=== PATIENT | female | born 1950 | race Hispanic/Latino ===

== ENCOUNTER 2017-08-18 06:45 | Day surgery (SDC) | payer MEDICARE, MEDICAID ==
[2017-08-14 09:23] VITALS: BMI 40.2
[2017-08-18] MEDS ORDERED: Lidocaine 2% Inj (20ml) ONE (07:02)
[2017-08-18] MEDS ORDERED: Iohexol 350mgl/ml 50 ML ONE (07:03)
[2017-08-18] MEDS ORDERED: Iodixanol 320 MG/ML 200 ML BOTTLE IV ONE (07:03)
[2017-08-18] MEDS ORDERED: Iodixanol 320 MG/ML 100 ML BOTTLE IV ONE (07:03)
[2017-08-18] MEDS ORDERED: HEPARIN SODIUM/NS 2,000 ML IV ONE (07:03)
[2017-08-18] MEDS ORDERED: Phenylephrine 10 mg/ml Inj ONE (07:03)
[2017-08-18 08:16] LABS: BASO # 0.01 K/mm3 (0.0-2.0); BASO % 0.1 % (0.0-3.0); EOS # 0.1 (0.0-0.7); EOS % 1.3 % (1.5-5.0); GRAN # 4.56 (1.4-6.5); GRAN % 66.9 % (50.0-68.0); HEMOGLOBIN 13.2 g/dL (12.0-16.0); LYMPH # 1.6 (1.2-3.4); LYMPH % 23.5 % (22.0-35.0); MEAN CELL VOLUME 80.1 fl (80.0-105.0); MEAN CORPUSCULAR HEMOGLOBIN 26.2 pg (25.0-35.0); MEAN CORPUSCULAR HGB CONC 32.8 g/dl (31.0-37.0); MEAN PLATELET VOLUME 12.7 fl (7.0-11.0); MONO # 0.6 (0.1-0.6); MONO % 8.2 % (1.0-6.0); RBC 5.03 10^6/uL (3.5-6.1); RED CELL DISTRIBUTION WIDTH 13.4 % (11.5-14.5); WHITE BLOOD COUNT 6.8 10^3/ul (4.5-11.0)
[2017-08-18 08:28] LABS: INR 1.04 (0.93-1.08)
[2017-08-18 08:29] LABS: PARTIAL THROMBOPLASTIN TIME 30.3 Seconds (25.1-36.5)
[2017-08-18 08:36] LABS: LDL CHOLESTEROL 99 mg/dL (0-129)
[2017-08-18 08:39] LABS: BLOOD UREA NITROGEN 25 mg/dL (7-21); CALCIUM 10.8 mg/dL (8.4-10.5); GFR AFRICAN-AMERICAN > 60; GFR NON-AFRICAN AMERICAN > 60; HDL CHOLESTEROL 43 mg/dL (29-60)
[2017-08-18] MEDS ORDERED: Midazolam 2 MG/2 ML VIAL ONE ×2 (08:43→09:03)
[2017-08-18] MEDS ORDERED: Nitroglycerin 50mg in D5W 0 MG/0 ML BOTTLE IV ONE (08:44)
[2017-08-18] MEDS ORDERED: Sodium Chloride 0.9% 1,000 ML IV SCH (09:30)
[2017-08-18 09:50] VITALS: TEMP 97.3
[2017-08-18 12:15] VITALS: RESP 20
[2017-08-18 13:57] VITALS: BP 124/69; PULSE 65; O2SAT 94
--- NOTE | 2017-08-18 18:06 | CARD ---
APPROVED REPORT EKG Measurement Heart [id number] <Conclusion> Normal sinus rhythm Minimal voltage criteria for LVH, may be normal variant Borderline ECG
--- NOTE | 2017-08-18 21:16 | CARDCATH ---
PROCEDURE DATE: 08/18/2017 HISTORY: The patient is a 67-year-old woman with a history of diabetes mellitus, hypertension and hypercholesterolemia, and sedentary lifestyle who presents with chest pain, shortness of breath and an abnormal stress test. Because of this, a cardiac catheterization was recommended. PROCEDURES: Left heart catheterization with coronary arteriography, left ventriculogram were performed. The right femoral artery was cannulated with a 6-Bahraini sheath. There were no complications. Performed moderate sedation which included the presence of an independent trained observer that assisted in monitoring the patient's level of consciousness and physiologic status. After administration of Versed and fentanyl, my intra-service time was 15 minutes. Findings on catheterization revealed a left ventricle that contracted normally. Estimated ejection fraction is 60% to 65%. Her coronary anatomy revealed a right dominant circulation. The RCA revealed diffuse atherosclerosis without critical lesions. The left main artery was unremarkable. The LAD and diagonal vessels revealed intimal irregularities throughout its course without critical lesions. The circumflex artery and obtuse marginal branches were free of significant disease. Angio-Seal was used to close the femoral artery site. The patient tolerated the procedure well. In summary, the procedure revealed diffuse atherosclerosis throughout the coronary tree, but no critical lesions. LV function is normal. Given these findings, the patient should be on aspirin daily. She needs to undergo a strict cardiac risk reduction program. Mc Mukherjee MD
== END 2017-08-18 16:00 | disposition home or self-care (01) ==
LOC: CATH 06:45
PROVIDERS: ATTEND Internal Medicine Cardiovascular Disease
DX: I25.10 Atherosclerotic heart disease of native coronary artery without angina pectoris (principal); I10 Essential (primary) hypertension; E78.00 Pure hypercholesterolemia, unspecified; E11.9 Type 2 diabetes mellitus without complications; R06.02 Shortness of breath; Z79.4 Long term (current) use of insulin
CPT/HCPCS: 36415; 80048; 80061; 85025; 85610; 85730; 86850; 86900; 93005; 93458; 99152; C1760; C1769; C1887; C2629; J1644; J2250; J3010; J7030; J7040

== ENCOUNTER 2017-09-08 15:19 | Emergency (ER) | payer MEDICARE, MEDICAID ==
[2017-09-08 15:19] VITALS: BMI 40.2
[2017-09-08 15:34] VITALS: RESP 18; TEMP 98.4; O2SAT 99
--- NOTE | 2017-09-08 16:46 | ED PDOC ---
Arrival/HPI - General Chief Complaint: Back Pain Time Seen by Provider: 09/08/17 15:26 Historian: Patient - History of Present Illness Narrative History of Present Illness (Text): you were treated in the ED today for hx of sciatica and now having left lower back/hip pain going to the left lower leg but otherwise without any nausea/ vomiting/headache/dizziness/difficulty breathing/chest pain/abdomen pain/ numbness/tingling/loss of limb or bowel or bladder function/pain with urination. 09/08/17 16:43 Time/Duration: 24 hours Past Medical History - Provider Review Nursing Documentation Reviewed: Yes - Travel History Have you recently traveled outside [place] w/in the past 3 mons?: No - Cardiac Hx Pacemaker: No - Pulmonary Hx Respiratory Disorders: No - Neurological Hx Paralysis: No - Hematological/Oncological Hx Blood Transfusions: No Hx Blood Transfusion Reaction: No - Musculoskeletal/Rheumatological Hx Musculoskeletal Disorders: Yes - Psychiatric Hx Emotional Abuse: No Hx Physical Abuse: No Hx Substance Use: No - Anesthesia Hx Anesthesia Reactions: No Hx Malignant Hyperthermia: No - Suicidal Assessment Feels Threatened In Home Enviroment: No Family/Social History - Physician Review Nursing Documentation Reviewed: Yes Family/Social History: No Known Family HX Smoking Status: Never Smoked Hx Alcohol Use: Yes (SOCIAL) Frequency of alcohol use: Socially Hx Substance Use: No Allergies/Home Meds Allergies/Adverse Reactions: Allergies celecoxib [From Celebrex] Allergy (Severe, Verified 09/08/17 15:29) SWELLING ONE SIDE OF FACE Home Medications: Home Meds Medication Instructions Recorded Confirmed Ranitidine HCl [Sunmark Acid 150 mg PO BID 08/14/17 08/18/17 Risk Assessment Consultant] Simvastatin 10 mg PO QPM 08/14/17 08/18/17 Tramadol HCl [Ultram] 50 mg PO Q6 PRN 08/14/17 08/18/17 Insulin Aspart, Recombinant 20 unit SC ACB 08/15/17 08/18/17 [Novolog] Insulin Aspart, Recombinant 22 unit SC ACL 08/15/17 08/18/17 [Novolog] Insulin Aspart, Recombinant 24 unit SC ACD 08/15/17 08/18/17 [Novolog] MetFORMIN [glucOPHAGE] 1,000 mg PO BID 08/15/17 08/18/17 Valsartan 320 mg PO DAILY 08/15/17 08/18/17 Review of Systems - Review of Systems Constitutional: Normal Eyes: Normal ENT: Normal Respiratory: Normal Cardiovascular: Normal Gastrointestinal: Normal Genitourinary Female: Normal Musculoskeletal: Normal, Arthralgias Skin: Normal Neurological: Normal Endocrine: Normal Hemo/Lymphatic: Normal Psychiatric: Normal Physical Exam Vital Signs Reviewed: Yes Vital Signs Temp Pulse Resp BP Pulse Ox 09/08/17 17:00 79 18 158/69 H 99 09/08/17 15:32 98.4 F 83 18 166/70 H 99 Temperature: Afebrile Blood Pressure: Hypertensive Pulse: Regular Respiratory Rate: Normal Appearance: Positive for: Well-Appearing, Non-Toxic, Comfortable Pain Distress: None Mental Status: Positive for: Alert and Oriented X 3 - Systems Exam Head: Present: Atraumatic, Normocephalic Pupils: Present: PERRL Extroacular Muscles: Present: EOMI Conjunctiva: Present: Normal Ears: Present: Normal Mouth: Present: Moist Mucous Membranes Pharnyx: Present: Normal Nose (External): Present: Atraumatic Nose (Internal): Present: Normal Inspection Neck: Present: Normal Range of Motion Respiratory/Chest: Present: Clear to Auscultation, Good Air Exchange Cardiovascular: Present: Regular Rate and Rhythm, Other Abdomen: Present: Other (no pulsatile masses). No: Tenderness, Distention, Normal Bowel Sounds, Peritoneal Signs, Rebound, Guarding, McBurney's Point Tender, Rovsing's Sign Present, Hernias, Feeding Tubes, Ostomy Tubes, Mass/ Organomegaly, Scars Back: Present: Paraspinal Tenderness, Other (no c-t- tenderness but mild lumbar spinal/paraspinal discomfort wo redness/fluctuance/crepitus.) Upper Extremity: Present: Normal Inspection Lower Extremity: Present: Normal Inspection, Other (positive LLE leg raise) Neurological: Present: GCS=15, CN II-XII Intact, Speech Normal, Motor Func Grossly Intact Skin: Present: Warm, Normal Color Psychiatric: Present: Alert, Oriented x 3, Normal Insight, Normal Concentration Medical Decision Making ED Course and Treatment: you were treated in the ED today for hx of sciatica and now having left lower back/hip pain going to the left lower leg but otherwise without any nausea/ vomiting/headache/dizziness/difficulty breathing/chest pain/abdomen pain/ numbness/tingling/loss of limb or bowel or bladder function/pain with urination. You were otherwise breathing easily, pink moist lips, smiling and talking with your , good strength/sensation, alert/oriented, walking easily, clear lungs, no abdomen tenderness, right groin without findings, pain in the lumbar area without redness, pain on the left hip and left lower leg positive pain with leg raise, no fever temp 98.4, stable heart rate 83, stable breathing rate 18, excellent oxygen level 99% room air, elevated blood pressure 166/70 which we recommend repeat in 2-3 days primary care office to determine further treatment, radiology ct lumbar no acute fractures with disc disease and degenerative findings and ct pelvis no acute findings, flexeril, tylenol, observation done in the ED with improvement, counselled to rest and thus discharged home with hsuband. 1. Recommend tylenol as directed for mild pain. 2. Recommend flexeril as directed for breakthrough pain. 3. Recommend follow- up primary care 2-3 days to review symptoms, referral to oncology clinic and orthopedics and surgery clinic for scattered stable sclerotic foci of the pelvis /bones to ensure no complications/cancer development. 4. If any worsening pain, fever, chills, nausea, vomiting, difficulty breathing, numbness, loss of limb function, pain with urination or any medical condition then return to the ED. 09/08/17 16:45 09/08/17 16:47 09/08/17 19:24 09/08/17 19:25 09/08/17 19:48 - Lab Interpretations Lab Results: Lab Results 09/08/17 18:45: POC Glucose (mg/dL) 193 H - RAD Interpretation Radiology Orders: 09/08/17 16:31 LUMBAR SPINE W/O CONTRAST [CT] Stat PELVIS W/O PO OR IV CONTRAST [CT] Stat - Medication Orders Current Medication Orders: Discontinued Medications Acetaminophen (Tylenol 325mg Tab) 975 mg PO STAT STA Stop: 09/08/17 16:33 Last Admin: 09/08/17 17:27 Dose: 975 mg MAR Pain/Vitals Document 09/08/17 17:27 GMI (Rec: 09/08/17 17:29 GMI [id number]) Presence of Pain Presence of Pain Yes Pain Scale Used Pain Scale Used Numeric Location Left, Right or Bilateral Bilateral Pain Behavior Facial Grimacing Alleviating Factors Distraction Cyclobenzaprine HCl (Flexeril) 10 mg PO STAT STA Stop: 09/08/17 16:33 Last Admin: 09/08/17 17:29 Dose: 10 mg Disposition/Present on Arrival - Present on Arrival Any Indicators Present on Arrival: No History of DVT/PE: No History of Uncontrolled Diabetes: No Urinary Catheter: No History of Decub. Ulcer: No History Surgical Site Infection Following: None - Disposition Have Diagnosis and Disposition been Completed?: Yes Diagnosis: Sciatica Disposition Time: 19:51 Patient Plan: Discharge Patient Problems: Current Active Problems Problem Status Onset Sciatica Acute Condition: IMPROVED Discharge Instructions (ExitCare): Sciatica Additional Instructions: you were treated in the ED today for hx of sciatica and now having left lower back/hip pain going to the left lower leg but otherwise without any nausea/ vomiting/headache/dizziness/difficulty breathing/chest pain/abdomen pain/ numbness/tingling/loss of limb or bowel or bladder function/pain with urination. You were otherwise breathing easily, pink moist lips, smiling and talking with your , good strength/sensation, alert/oriented, walking easily, clear lungs, no abdomen tenderness, right groin without findings, pain in the lumbar area without redness, pain on the left hip and left lower leg positive pain with leg raise, no fever temp 98.4, stable heart rate 83, stable breathing rate 18, excellent oxygen level 99% room air, elevated blood pressure 166/70 which we recommend repeat in 2-3 days primary care office to determine further treatment, radiology ct lumbar no acute fractures with disc disease and degenerative findings and ct pelvis no acute findings, flexeril, tylenol, observation done in the ED with improvement, counselled to rest and thus discharged home with hsuband. 1. Recommend tylenol as directed for mild pain. 2. Recommend flexeril as directed for breakthrough pain. 3. Recommend follow- up primary care 2-3 days to review symptoms, referral to oncology clinic and orthopedics and surgery clinic for scattered stable sclerotic foci of the pelvis /bones to ensure no complications/cancer development. 4. If any worsening pain, fever, chills, nausea, vomiting, difficulty breathing, numbness, loss of limb function, pain with urination or any medical condition then return to the ED. Prescriptions: Cyclobenzaprine [Cyclobenzaprine HCl] 10 mg PO Q8 PRN 4 Days #12 tab PRN Reason: breakthrough pain Referrals: [facility] Yeyo Remariya, [Primary Care Provider] - Follow up with primary Forms: CNZZ (Vietnamese)
[2017-09-08 17:01] VITALS: BP 158/69; PULSE 79
--- NOTE | 2017-09-08 19:04 | CT ---
PROCEDURE: CT Lumbar Spine without contrast HISTORY: 67yoF, with left back pain, rads to LLE. COMPARISON: Comparison made with CT scan of the abdomen and pelvis dated 01/29/2016 which also image the lumbar spine in 3 planes. TECHNIQUE: Axial computed tomography images were obtained of the lumbar spine without the use of intravenous contrast. Coronal and sagittal reformatted images were created and reviewed. Radiation dose: Total exam DLP = 2081.47 mGy-cm. This CT exam was performed using one or more of the following dose reduction techniques: Automated exposure control, adjustment of the mA and/or kV according to patient size, and/or use of iterative reconstruction technique. FINDINGS: VERTEBRAE: The current study reveals no acute compression fractures no retropulsed fragments. The vertebral bodies exhibit relatively normal stature and alignment. Facets normally aligned. DISCS/SPINAL CANAL/NEURAL FORAMINA: Multilevel degenerative spondylosis. At the L4-L5 level, there is marked disc space narrowing with vacuum disc phenomena endplate eburnation and small broad-based disc bulge ridge complex asymmetrically larger on the left than right with extension into the proximal inferior margins of both exit foramina. Changes result in mild flattening of the ventral surface of the thecal sac however the overall central canal appears adequate. Facet joints are hypertrophic. Exit foramina are stenotic on the left and marginal to slightly narrowed on the right. . At the L5-S1 level, there is minor posterior disc space narrowing with intradiscal calcification. Small broad-based bulge of the posterior annulus reaches the ventral surfaces of the descending S1 nerve roots however the overall central canal is adequate. Facet joints are hypertrophic. Exit foramina are also adequate despite encroaching disc and facet joint changes. . At the L3-L4 level, there is relatively adequate disc height. Minimal broad-based bulge of the posterior annulus flattens the ventral surface of the thecal sac however the overall central canal is adequate. Facets are hypertrophic. Exit foramina adequate despite encroaching disc and facet joint changes. . At the L2-L3 level, there is mild disc space narrowing with small broad-based disc bulge ridge complex that is slightly larger on the left than right and extends into the proximal inferior margins of both exit foramina the facet joints are hypertrophic. Central canal appears adequate despite some flattening of the ventral surface of the thecal sac more so on the left side. Exit foramina adequate despite encroaching disc and facet joint changes. . There is also disc space narrowing with endplate eburnation and broad-based disc bulge ridge complex at the L1-L2 level that results some flattening of the ventral surface of the thecal sac as well. Central canal appears adequate. Facets are mildly hypertrophic. Exit foramina adequate. PARASPINAL SOFT TISSUES: Unremarkable. OTHER FINDINGS: None. IMPRESSION: No acute fractures. Multilevel degenerative spondylosis most notably affecting the L4-L5 level as above.
--- NOTE | 2017-09-09 08:39 | CT ---
PROCEDURE: CT Pelvis without contrast HISTORY: 67yoF, left hip pain/swelling COMPARISON: Abdomen pelvis CT without contrast 03/21/2017 as well as distant prior abdomen pelvis CT 08/05/2009. TECHNIQUE: Contiguous axial images of the pelvis . No intravenous or oral contrast given as requested. Coronal and sagittal reformats generated. Radiation dose: Total exam DLP = 1082.18 mGy-cm. This CT exam was performed using one or more of the following dose reduction techniques: Automated exposure control, adjustment of the mA and/or kV according to patient size, and/or use of iterative reconstruction technique. FINDINGS: BLADDER: Unremarkable. No mass. REPRODUCTIVE ORGANS: Lobular uterine changes are appreciated once again though isodense in appearance in the interval as compared to heterogeneous appearance previously. Findings remain suggestive of uterine fibroids. VISUALIZED BOWEL: The visualized bowel appears unremarkable though limited in evaluation to lack of oral and intravenous contrast agents. PERITONEUM: Unremarkable, as visualized. No free fluid. No free air. LYMPH NODES: Unremarkable. No enlarged lymph nodes. BONES: No fracture or definite destructive bony lesion is appreciated throughout the pelvis. Bilateral hip and sacroiliac degenerative changes have increased. An ovoid sclerotic density is stable and benign at the right iliac bone inferiorly as well as a smaller focus superiorly, dating back at least to 08/05/2009. No destructive bony lesion appreciable throughout. Soft tissues at the bilateral hip joints are unremarkable with no fluid collection associated grossly. VASCULATURE: Limited inferior abdominal aortic atherosclerosis without aneurysm formation. The visualized iliofemoral arterial systems also atherosclerotic and normal in caliber once again. OTHER FINDINGS: None. IMPRESSION: No fracture or destructive bony lesion is seen throughout the pelvis with degenerative changes increased at the bilateral sacroiliac and hip joints in the interval. Two sclerotic foci at the right iliac wing are stable dating back to prior CT 08/05/2009 indicative of benign nonaggressive process. Additional lesser soft tissue details as described above. Concordant preliminary report from [facility], 02/05/2018.
== END 2017-09-08 20:10 | disposition home or self-care (01) ==
LOC: ED 15:19
DX: M54.30 Sciatica, unspecified side (principal)

== ENCOUNTER 2017-09-10 11:27 | Emergency (ER) | payer MEDICARE, MEDICAID ==
[2017-09-10 11:29] VITALS: BMI 38.9
[2017-09-10 11:50] VITALS: TEMP 98.2
[2017-09-10] MEDS ORDERED: Oxycodone/Acetaminophen 5/325 mg Tab PO STA (11:56)
--- NOTE | 2017-09-10 12:05 | ED PDOC ---
Arrival/HPI - General Chief Complaint: Back Pain Time Seen by Provider: 09/10/17 11:33 Historian: Patient, Other (med records) - History of Present Illness Narrative History of Present Illness (Text): you were treated in the ED today for hx heart disease with cardiac cath 08/18/17 with diffuse disease without critical lesions, diabetes, hypertension, cholesterol, sciatica/lumbar disc disease, with ED evaluation 09/08/[address] with no acute fracture but degenerative/disc disease and ct pelvis without acute fracture but sclerotic foci in the pelvis and now having left lower back pain which goes to the back of the left lower leg but otherwise without any trauma/injury/loss of consciousness/neck pain/nausea/vomiting/ headache/dizziness/difficulty breathing/chest pain/abdomen pain/numbness/ tingling/loss of limb function/pain with urination. 09/10/17 11:57 09/10/17 12:08 Time/Duration: 4-6 hours Symptom Onset: Gradual Symptom Course: Intermittent Quality: Aching Severity Level: 3 Activities at Onset: Rest Context: Sitting Past Medical History - Provider Review Nursing Documentation Reviewed: Yes - Travel History Have you recently traveled outside [place] w/in the past 3 mons?: No - Reproductive Menopause: Yes - Cardiac Hx Cardiac Disorders: Yes Hx Pacemaker: No - Pulmonary Hx Respiratory Disorders: No - Neurological Hx Paralysis: No - Hematological/Oncological Hx Blood Transfusions: No Hx Blood Transfusion Reaction: No - Musculoskeletal/Rheumatological Hx Musculoskeletal Disorders: Yes - Psychiatric Hx Emotional Abuse: No Hx Physical Abuse: No Hx Substance Use: No - Surgical History Hx Cardiac Catheterization: Yes - Anesthesia Hx Anesthesia: Yes Hx Anesthesia Reactions: No Hx Malignant Hyperthermia: No - Suicidal Assessment Feels Threatened In Home Enviroment: No Family/Social History - Physician Review Nursing Documentation Reviewed: Yes Family/Social History: No Known Family HX Smoking Status: Never Smoked Hx Alcohol Use: Yes (SOCIAL) Hx Substance Use: No Allergies/Home Meds Allergies/Adverse Reactions: Allergies celecoxib [From Celebrex] Allergy (Severe, Verified 09/08/17 15:29) SWELLING ONE SIDE OF FACE Home Medications: Home Meds Medication Instructions Recorded Confirmed Ranitidine HCl [Sunmark Acid 150 mg PO BID 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] Simvastatin 10 mg PO QPM 08/14/17 09/10/17 Tramadol HCl [Ultram] 50 mg PO Q6 PRN 08/14/17 09/10/17 Insulin Aspart, Recombinant 20 unit SC ACB 08/15/17 09/10/17 [Novolog] Insulin Aspart, Recombinant 22 unit SC ACL 08/15/17 09/10/17 [Novolog] Insulin Aspart, Recombinant 24 unit SC ACD 08/15/17 09/10/17 [Novolog] MetFORMIN [glucOPHAGE] 1,000 mg PO BID 08/15/17 09/10/17 Valsartan 320 mg PO DAILY 08/15/17 09/10/17 Review of Systems - Review of Systems Constitutional: Normal Eyes: Normal ENT: Normal Respiratory: Normal Cardiovascular: Normal Gastrointestinal: Normal Genitourinary Female: Normal Musculoskeletal: Other (left lower back pain going to the left lower leg) Skin: Normal Neurological: Normal Endocrine: Normal Hemo/Lymphatic: Normal Psychiatric: Normal Physical Exam Vital Signs Reviewed: Yes Vital Signs Temp Pulse Resp BP Pulse Ox 09/10/17 15:00 66 18 155/74 H 97 09/10/17 12:28 68 18 158/78 H 97 09/10/17 11:48 98.2 F 70 18 163/80 H 97 Temperature: Afebrile Blood Pressure: Hypertensive Pulse: Regular Respiratory Rate: Normal Appearance: Positive for: Uncomfortable Pain Distress: None Mental Status: Positive for: Alert and Oriented X 3 - Systems Exam Head: Present: Atraumatic, Normocephalic Pupils: Present: PERRL Extroacular Muscles: Present: EOMI Conjunctiva: Present: Normal Ears: Present: Normal Mouth: Present: Moist Mucous Membranes Pharnyx: Present: Normal Nose (External): Present: Atraumatic Nose (Internal): Present: Normal Inspection Neck: Present: Normal Range of Motion Respiratory/Chest: Present: Clear to Auscultation, Good Air Exchange Cardiovascular: Present: Regular Rate and Rhythm Abdomen: Present: Other (no pulsatile masses). No: Tenderness, Distention, Normal Bowel Sounds, Peritoneal Signs, Rebound, Guarding, McBurney's Point Tender, Rovsing's Sign Present, Hernias, Feeding Tubes, Ostomy Tubes, Mass/ Organomegaly, Scars Back: Present: Normal Inspection Upper Extremity: Present: Normal Inspection Lower Extremity: Present: Normal Inspection Neurological: Present: GCS=15, CN II-XII Intact, Speech Normal, Motor Func Grossly Intact Skin: Present: Warm, Normal Color Psychiatric: Present: Alert, Oriented x 3, Normal Insight, Normal Concentration Medical Decision Making ED Course and Treatment: you were treated in the ED today for hx heart disease with cardiac cath 08/18/17 with diffuse disease without critical lesions, diabetes, hypertension, cholesterol, sciatica/lumbar disc disease, with ED evaluation 09/08/[address] with no acute fracture but degenerative/disc disease and ct pelvis without acute fracture but sclerotic foci in the pelvis and now having left lower back pain which goes to the back of the left lower leg but otherwise without any trauma/injury/loss of consciousness/neck pain/nausea/vomiting/ headache/dizziness/difficulty breathing/chest pain/abdomen pain/numbness/ tingling/loss of limb function/pain with urination. You were otherwise breathing easily, pink moist lips, talking easily, good strength/sensation, alert/oriented, walking easily, clear lungs, no abdomen tenderness/or pulsatile masses, no spinal tenderness/redness/pelvis tenderness but positive left lower leg straight leg raise pain but otherwise nice warm/pink/sensation/pulses in extremities, no fever temp 98.2, stable heart rate 70, stable breathing rate 18 , excellent oxygen level 97% room air, elevated blood pressure 163/80 which we recommend repeat in 2-3 days primary care office to determine further treatment , you have blood tests no infection count 6.7, stable blood level hemoglobin 14/ platelets mildly low 118, stable chemistry, mildly elevated liver AST/ALT 63/69 , mildly elevated Liver Alklaline Phosphatase 148, Liver bilirubin, elevated calcium 11.1, heart blood test negative less than 0.01, urine test with infection noted, ECG normal sinus rhythm, percocet, macrobid for urine infectio control, observation done in the ED with improvement, counselled to rest and use heating pads and thus discharged home with safe ride . 1. Recommend tylenol as directed for mild pain. 2. Recommend percocet as directed for breakthrough pain and dont' work/drive/drink alcohol when using. recommend macrobid as directed for urine infection control. 3. Recommend follow-up primary care 1-2 days to review symptoms, to repeat calcium level, liver tests to ensure improvement and if not referral to endocrine clinic and gastroenterology clinic to ensure no complications/cancer development, referral to spine and orthopedics clinics for lumbar ct with no acute fracture but degenerative/disc disease and ct pelvis without acute fracture but sclerotic foci in the pelvis to ensure no complications/cancer development. 4. If any worsening pain, fever, chills, nausea, vomiting, difficulty breathing, numbness , loss of limb function, pain with urination or any medical condition then return to the ED. Reassessment Condition: Re-examined, Improved - Lab Interpretations Lab Results: 09/10/17 12:32 09/10/17 12:32 Lab Results 09/10/17 14:25: Urine Color Yellow, Urine Appearance Slight-cloudy, Urine pH 6.0 , Ur Specific [place] 1.025, Urine Protein Trace H, Urine Glucose (UA) Negative , Urine Ketones Negative, Urine Blood Trace-intact H, Urine Nitrate Positive H, Urine Bilirubin Negative, Urine Urobilinogen 0.2, Ur Leukocyte Esterase Negative , Urine RBC 0 - 2, Urine WBC 0 - 2, Ur Epithelial Cells 1 - 3, Urine Bacteria Mod 09/10/17 12:32: Sodium 138, Potassium 4.6, Chloride 99, Carbon Dioxide 28, Anion Gap 15, BUN 24 H, Creatinine 0.9, Est GFR ( Amer) > 60, Est GFR ( Non-Af Amer) > 60, Random Glucose 191 H, Calcium 11.1 H, Total Bilirubin 0.6, AST 63 H D, ALT 69 H, Alkaline Phosphatase 148 H D, Troponin I < 0.01, Total Protein 7.7, Albumin 4.1, Globulin 3.6, Albumin/Globulin Ratio 1.1 09/10/17 12:32: PT 11.9, INR 1.03, APTT 30.5 09/10/17 12:32: WBC 6.7, RBC 5.34, Hgb 14.1, Hct 42.8, MCV 80.1, MCH 26.4, MCHC 32.9, RDW 13.1, Plt Count 118 L, MPV 11.6 H, Gran % 68.3 H, Lymph % (Auto) 22.1 , Charles % (Auto) 8.5 H, Eos % (Auto) 0.7 L, Baso % (Auto) 0.4, Gran # 4.56, Lymph # (Auto) 1.5, Charles # (Auto) 0.6, Eos # (Auto) 0.1, Baso # (Auto) 0.03 I have reviewed the lab results: Yes - EKG Interpretation Interpreted by ED Physician: Yes (normal sinus rhythm with flipped t waves avr, v1) Type: 12 lead EKG - Medication Orders Current Medication Orders: Discontinued Medications Ondansetron HCl (Zofran Odt) 4 mg PO STAT STA Stop: 09/10/17 11:57 Last Admin: 09/10/17 12:28 Dose: 4 mg Oxycodone/Acetaminophen (Percocet 5/325 Mg Tab) 1 tab PO STAT STA Stop: 09/10/17 11:57 Last Admin: 09/10/17 12:28 Dose: 1 tab MAR Pain Assessment Document 09/10/17 12:28 SF (Rec: 09/10/17 12:28 SF [id number]) Pain Reassessment Is this a pain reassessment? Yes Sleep Is patient sleeping during reassessment? No Presence of Pain Presence of Pain Yes Pain Scale Used Pain Scale Used Numeric Disposition/Present on Arrival - Present on Arrival Any Indicators Present on Arrival: No History of DVT/PE: No History of Uncontrolled Diabetes: No Urinary Catheter: No History of Decub. Ulcer: No History Surgical Site Infection Following: None - Disposition Have Diagnosis and Disposition been Completed?: Yes Diagnosis: Sciatic mononeuropathy, UTI (urinary tract infection) Disposition: HOME/ ROUTINE Disposition Time: 15:48 Patient Plan: Discharge Condition: IMPROVED Discharge Instructions (ExitCare): Urinary Tract Infections in Adults Additional Instructions: you were treated in the ED today for hx heart disease with cardiac cath 08/18/17 with diffuse disease without critical lesions, diabetes, hypertension, cholesterol, sciatica/lumbar disc disease, with ED evaluation 09/08/[address] with no acute fracture but degenerative/disc disease and ct pelvis without acute fracture but sclerotic foci in the pelvis and now having left lower back pain which goes to the back of the left lower leg but otherwise without any trauma/injury/loss of consciousness/neck pain/nausea/vomiting/ headache/dizziness/difficulty breathing/chest pain/abdomen pain/numbness/ tingling/loss of limb function/pain with urination. You were otherwise breathing easily, pink moist lips, talking easily, good strength/sensation, alert/oriented, walking easily, clear lungs, no abdomen tenderness/or pulsatile masses, no spinal tenderness/redness/pelvis tenderness but positive left lower leg straight leg raise pain but otherwise nice warm/pink/sensation/pulses in extremities, no fever temp 98.2, stable heart rate 70, stable breathing rate 18 , excellent oxygen level 97% room air, elevated blood pressure 163/80 which we recommend repeat in 2-3 days primary care office to determine further treatment , you have blood tests no infection count 6.7, stable blood level hemoglobin 14/ platelets mildly low 118, stable chemistry, mildly elevated liver AST/ALT 63/69 , mildly elevated Liver Alklaline Phosphatase 148, Liver bilirubin, elevated calcium 11.1, heart blood test negative less than 0.01, urine test with infection noted, ECG normal sinus rhythm, percocet, macrobid for urine infectio control, observation done in the ED with improvement, counselled to rest and use heating pads and thus discharged home with safe ride . 1. Recommend tylenol as directed for mild pain. 2. Recommend percocet as directed for breakthrough pain and dont' work/drive/drink alcohol when using. recommend macrobid as directed for urine infection control. 3. Recommend follow-up primary care 1-2 days to review symptoms, to repeat calcium level, liver tests to ensure improvement and if not referral to endocrine clinic and gastroenterology clinic to ensure no complications/cancer development, referral to spine and orthopedics clinics for lumbar ct with no acute fracture but degenerative/disc disease and ct pelvis without acute fracture but sclerotic foci in the pelvis to ensure no complications/cancer development, referral to hematology/oncology for low platelets to ensure no complications. 4. If any worsening pain, fever, chills, nausea, vomiting, difficulty breathing, numbness , loss of limb function, pain with urination or any medical condition then return to the ED. Prescriptions: Nitrofurantoin Macrocrystals [Macrobid] 100 mg PO Q12 7 Days #14 cap Ondansetron ODT [Zofran ODT] 4 mg PO Q8 PRN 5 Days #20 odt PRN Reason: nausea/vomiting from med oxyCODONE/Acetaminophen [Percocet 5/325 mg Tab] 1 ea PO Q8 3 Days #9 tab Forms: [employer] (Slovak)
[2017-09-10 12:36] LABS: BASO # 0.03 K/mm3 (0.0-2.0); BASO % 0.4 % (0.0-3.0); EOS # 0.1 (0.0-0.7); EOS % 0.7 % (1.5-5.0); GRAN # 4.56 (1.4-6.5); GRAN % 68.3 % (50.0-68.0); HEMOGLOBIN 14.1 g/dL (12.0-16.0); LYMPH # 1.5 (1.2-3.4); LYMPH % 22.1 % (22.0-35.0); MEAN CELL VOLUME 80.1 fl (80.0-105.0); MEAN CORPUSCULAR HEMOGLOBIN 26.4 pg (25.0-35.0); MEAN CORPUSCULAR HGB CONC 32.9 g/dl (31.0-37.0); MEAN PLATELET VOLUME 11.6 fl (7.0-11.0); MONO # 0.6 (0.1-0.6); MONO % 8.5 % (1.0-6.0); RBC 5.34 10^6/uL (3.5-6.1); RED CELL DISTRIBUTION WIDTH 13.1 % (11.5-14.5); WHITE BLOOD COUNT 6.7 10^3/ul (4.5-11.0)
[2017-09-10 12:46] LABS: INR 1.03 (0.93-1.08); PARTIAL THROMBOPLASTIN TIME 30.5 Seconds (25.1-36.5); PROTHROMBIN TIME 11.9 SECONDS (9.4-12.5)
[2017-09-10 12:47] LABS: ALB/GLOB RATIO 1.1 (1.1-1.8); ALBUMIN 4.1 g/dL (3.0-4.8); ALT/SGPT 69 U/L (7-56); AST/SGOT 63 U/L (14-36); BLOOD UREA NITROGEN 24 mg/dL (7-21); CALCIUM 11.1 mg/dL (8.4-10.5); GFR AFRICAN-AMERICAN > 60; GFR NON-AFRICAN AMERICAN > 60
[2017-09-10 12:56] LABS: TROPONIN I < 0.01 ng/mL
[2017-09-10 14:38] LABS: URINE BILIRUBIN NEGATIVE (NEGATIVE); URINE BLOOD TRACE-INTACT (NEGATIVE); URINE GLUCOSE (UA) NEGATIVE (NEGATIVE); URINE LEUKOCYTE ESTERASE NEGATIVE Leu/uL (NEGATIVE); URINE NITRATE POSITIVE (NEGATIVE); URINE PROTEIN TRACE mg/dL (<30 mg/dL); URINE UROBILINOGEN 0.2 E.U./dL (<1 E.U./dL)
[2017-09-10 14:39] LABS: URINE APPEARANCE SLIGHT-CLOUDY (CLEAR); URINE COLOR YELLOW (YELLOW)
[2017-09-10 14:44] LABS: URINE BACTERIA MOD (NEG); URINE RBC 0 - 2 /hpf (0-2); URINE WBC 0 - 2 /hpf (0-6)
[2017-09-10 16:08] VITALS: BP 145/80; PULSE 68; RESP 17; O2SAT 98
--- NOTE | 2017-09-11 12:41 | CARD ---
APPROVED REPORT EKG Measurement Heart [id number] <Conclusion> Normal sinus rhythm Left axis deviation
== END 2017-09-10 16:06 | disposition home or self-care (01) ==
LOC: ED 11:27
DX: G58.9 Mononeuropathy, unspecified (principal); N39.0 Urinary tract infection, site not specified

== ENCOUNTER 2017-09-29 06:01 | Emergency (ER) | payer MEDICARE, MEDICAID ==
[2017-09-29 06:02] VITALS: BMI 38.9
[2017-09-29 06:10] VITALS: TEMP 98
[2017-09-29] MEDS ORDERED: Morphine 2 mg/ml ISec IVP STA (06:21)
[2017-09-29] MEDS ORDERED: Sodium Chloride 0.9% 1,000 ML IV STA (06:21)
--- NOTE | 2017-09-29 06:21 | ED PDOC ---
Arrival/HPI - General Historian: Patient - History of Present Illness Symptom Onset: Sudden Symptom Course: Unchanged Activities at Onset: Rest Context: Home <John Hernandez - Last Filed: 09/29/17 06:38> <Asad Gonzales - Last Filed: 09/29/17 09:26> - General Chief Complaint: Back Pain Time Seen by Provider: 09/29/17 06:03 - History of Present Illness Narrative History of Present Illness (Text): 09/29/17 06:21 A 67 year old female, whose past medical history includes hypertension, diabetes , heart disease with cardiac cath 08/18/17 with diffuse disease without critical lesions and sciatica/lumbar disc disease, presents to the emergency department complaining of left lower quadrant abdominal pain. Patient denies any headache, dizziness, nausea, fever, chills or any other complaints at this time. (John Hernandez) Past Medical History - Provider Review Nursing Documentation Reviewed: Yes - Reproductive Menopause: Yes - Cardiac Hx Cardiac Disorders: Yes Hx Heart Murmur: Yes Hx Hypertension: Yes Hx Pacemaker: No - Pulmonary Hx Respiratory Disorders: No - Neurological Hx Neurological Disorder: No Hx Paralysis: No - HEENT Hx HEENT Disorder: No - Renal Hx Renal Disorder: No - Endocrine/Metabolic Hx Diabetes Mellitus Type 2: Yes - Hematological/Oncological Hx Blood Disorders: No Hx Blood Transfusions: No Hx Blood Transfusion Reaction: No - Integumentary Hx Dermatological Disorder: No - Musculoskeletal/Rheumatological Hx Musculoskeletal Disorders: Yes Hx Arthritis: Yes Hx Unsteady Gait: No Other/Comment: yakelin knee injections - Gastrointestinal Hx Gastrointestinal Disorders: No - Genitourinary/Gynecological Hx Genitourinary Disorders: No - Psychiatric Hx Psychophysiologic Disorder: No Hx Emotional Abuse: No Hx Physical Abuse: No Hx Substance Use: No - Surgical History Hx Cardiac Catheterization: Yes - Anesthesia Hx Anesthesia: Yes Hx Anesthesia Reactions: No Hx Malignant Hyperthermia: No - Suicidal Assessment Feels Threatened In Home Enviroment: No <John Hernandez - Last Filed: 09/29/17 06:38> Family/Social History - Physician Review Nursing Documentation Reviewed: Yes Family/Social History: No Known Family HX Smoking Status: Never Smoked Hx Alcohol Use: Yes (SOCIAL) Hx Substance Use: No <John Hernandez - Last Filed: 09/29/17 06:38> Allergies/Home Meds <John Hernandez - Last Filed: 09/29/17 06:38> <Asad Gonzales - Last Filed: 09/29/17 09:26> Allergies/Adverse Reactions: Allergies celecoxib [From Celebrex] Allergy (Severe, Verified 09/29/17 06:08) SWELLING ONE SIDE OF FACE Home Medications: Home Meds Medication Instructions Recorded Confirmed Ranitidine HCl [Sunmark Acid 150 mg PO BID 08/14/17 09/10/17 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 absent: Nausea Neurological: absent: Headache, Dizziness <John Hernandez - Last Filed: 09/29/17 06:38> Physical Exam Vital Signs Reviewed: Yes Temperature: Afebrile Blood Pressure: Hypertensive Pulse: Regular Respiratory Rate: Normal Appearance: Positive for: Well-Appearing, Non-Toxic, Comfortable Pain Distress: None Mental Status: Positive for: Alert and Oriented X 3 - Systems Exam Head: Present: Atraumatic, Normocephalic Pupils: Present: PERRL Extroacular Muscles: Present: EOMI Conjunctiva: Present: Normal Mouth: Present: Moist Mucous Membranes Neck: Present: Normal Range of Motion Respiratory/Chest: Present: Clear to Auscultation, Good Air Exchange. No: Respiratory Distress, Accessory Muscle Use Cardiovascular: Present: Regular Rate and Rhythm, Normal S1, S2. No: Murmurs Abdomen: Present: Tenderness (LLQ), Normal Bowel Sounds. No: Distention, Peritoneal Signs Back: Present: Normal Inspection Upper Extremity: Present: Normal Inspection. No: Cyanosis, Edema Lower Extremity: Present: Normal Inspection. No: Edema Neurological: Present: GCS=15, CN II-XII Intact, Speech Normal Skin: Present: Warm, Dry, Normal Color. No: Rashes Psychiatric: Present: Alert, Oriented x 3, Normal Insight, Normal Concentration <John Hernandez - Last Filed: 09/29/17 06:38> Vital Signs Temp Pulse Resp BP Pulse Ox 09/29/17 09:15 69 18 180/94 H 94 L 09/29/17 07:44 58 L 18 174/79 H 97 09/29/17 06:08 98.0 F 61 18 184/79 H 98 Medical Decision Making - Lab Interpretations I have reviewed the lab results: Yes - EKG Interpretation Interpreted by ED Physician: Yes Type: 12 lead EKG <John Hernandez - Last Filed: 09/29/17 06:38> - RAD Interpretation Jet Wiper: Radiologist <Asad Gonzales - Last Filed: 09/29/17 09:26> ED Course and Treatment: 09/29/17 06:19 Impression: A 67 year old female with LLQ abdominal pain. Plan: -- EKG -- labs -- Urinalysis -- Morphine, IV fluids, Zofran -- Reassess and disposition Prior Visits: Notes and results from previous visits were reviewed. Patient was last seen in the emergency department on 09/10/17 for evaluation of left lower back pain radiating to left lower leg. Progress Notes: 09/29/17 06:38 EKG: Ordered, reviewed, and independently interpreted the EKG. Rate : 59 BPM Rhythm : sinus bradycardia Interpretation : nonspecific ST segment changes (John Hernandez) 09/29/17 07:07 Patient was turned over to me by for evaluation of left lower quadrant abdominal pain. Patient reports that her pain began yesterday morning. No nausea vomiting or diarrhea. No radiation of the pain. No genitourinary symptoms. No fever or chills. No injury or trauma. On exam she has some moderate tenderness in the left lower quadrant with voluntary guarding. No rebound. A CT scan has been ordered to rule out diverticulitis. 09/29/17 08:30 Unfortunately, the patient has urinated and we did not obtain a sample. We are waiting for urine sample. 09/29/17 09:22 Urine culture is pending. CT scan is unrevealing. Workup is unremarkable. Chronic abdominal pain. Will be discharged home to follow-up with PMD. We will call patient if urine culture is positive. Follow-up in the ER as needed. ( Asad Gonzales) - Lab Interpretations Lab Results: 09/29/17 06:15 09/29/17 06:15 Lab Results 09/29/17 06:40: Urine Color Yellow, Urine Appearance Clear, Urine pH 7.5, Ur Specific [place] 1.025, Urine Protein >=300 H, Urine Glucose (UA) 500 H, Urine Ketones 40 H, Urine Blood Small H, Urine Nitrate Negative, Urine Bilirubin Negative, Urine Urobilinogen 0.2, Ur Leukocyte Esterase Negative, Urine RBC 5 - 10, Urine WBC 0 - 2, Ur Epithelial Cells 3 - 4, Urine Bacteria Mod, Urine Other Fiber 09/29/17 06:15: Lactic Acid 1.8 09/29/17 06:15: Sodium 134, Potassium 4.2, Chloride 95 L, Carbon Dioxide 27, Anion Gap 17, BUN 13, Creatinine 0.8, Est GFR ( Amer) > 60, Est GFR (Non- Af Amer) > 60, Random Glucose 261 H, Calcium 10.9 H, Total Bilirubin 0.7, AST 50 H, ALT 71 H, Alkaline Phosphatase 155 H, Lactate Dehydrogenase 527, Total Creatine Kinase 83, Troponin I 0.02 D, Total Protein 7.9, Albumin 4.2, Globulin 3.7, Albumin/Globulin Ratio 1.1, Amylase 85, Lipase 92 09/29/17 06:15: PT 11.0, INR 0.96, APTT 33.1 09/29/17 06:15: WBC 8.8 D, RBC 5.33, Hgb 13.9, Hct 41.6, MCV 78.0 L, MCH 26.1, MCHC 33.4, RDW 13.3, Plt Count 178, MPV 11.3 H, Gran % 80.6 H, Lymph % (Auto) 14.2 L, [place] % (Auto) 4.9, Eos % (Auto) 0.2 L, Baso % (Auto) 0.1, Gran # 7.05 H , Lymph # (Auto) 1.2, [place] # (Auto) 0.4, Eos # (Auto) 0.0, Baso # (Auto) 0.01 - RAD Interpretation Radiology Orders: 09/29/17 07:06 ABD & PELVIS W/O PO OR IV CONT [CT] Stat CT scan of the abdomen and pelvis is read by the radiologist shows no acute findings. (Asad Gonzales) - Medication Orders Current Medication Orders: Sodium Chloride (Sodium Chloride 0.9%) 1,000 mls @ 100 mls/hr IV .Q10H STA Stop: 09/29/17 16:20 Last Admin: 09/29/17 06:58 Dose: 100 mls/hr eMAR Start Stop Document 09/29/17 06:58 [facility] (Rec: 09/29/17 06:58 [id number] Intravenous Solution Start Date 09/29/17 Start Time 06:45 Discontinued Medications Morphine Sulfate (Morphine) 2 mg IVP STAT STA Stop: 09/29/17 06:22 Last Admin: 09/29/17 06:58 Dose: 2 mg MAR Pain Assessment Document 09/29/17 06:58 [facility] (Rec: 09/29/17 06:58 [id number] Pain Reassessment Is this a pain reassessment? Yes Sleep Is patient sleeping during reassessment? No Presence of Pain Presence of Pain Yes Location Upper or Lower Lower Pain Location Body Site Back IVP Administration Document 09/29/17 06:58 [facility] (Rec: 09/29/17 06:58 [id number] Charges for Administration # of IVP Administrations 1 Ondansetron HCl (Zofran Inj) 4 mg IVP STAT STA Stop: 09/29/17 06:22 Last Admin: 09/29/17 06:58 Dose: 4 mg IVP Administration Document 09/29/17 06:58 [facility] (Rec: 09/29/17 06:58 [id number] Charges for Administration # of IVP Administrations 1 - Scribe Statement The provider has reviewed the documentation as recorded by the Scribe <John Hernandez - Last Filed: 09/29/17 06:38> <Asad Gonzales - Last Filed: 09/29/17 09:26> - Scribe Statement Sarah Rivera Provider Scribe Attestation: All medical record entries made by the Scribe were at my direction and personally dictated by me. I have reviewed the chart and agree that the record accurately reflects my personal performance of the history, physical exam, medical decision making, and the department course for this patient. I have also personally directed, reviewed, and agree with the discharge instructions and disposition. (John Hernandez) Disposition/Present on Arrival - Present on Arrival History of DVT/PE: No History of Uncontrolled Diabetes: No Urinary Catheter: No History of Decub. Ulcer: No History Surgical Site Infection Following: None <John Hernandez - Last Filed: 09/29/17 06:38> - Present on Arrival Any Indicators Present on Arrival: No History of DVT/PE: No History of Uncontrolled Diabetes: No Urinary Catheter: No History of Decub. Ulcer: No - Disposition Have Diagnosis and Disposition been Completed?: Yes Disposition Time: 09:23 Patient Plan: Discharge <Asad Gonzales - Last Filed: 09/29/17 09:26> - Disposition Diagnosis: Abdominal pain Disposition: HOME/ ROUTINE Condition: GOOD Discharge Instructions (ExitCare): Chronic Pain (DC), Acute Abdomen (Belly Pain ), Adult (DC) Prescriptions: Tramadol HCl [Ultram] 50 mg PO Q6 PRN #14 tab PRN Reason: Pain Forms: [employer] (Lithuanian)
[2017-09-29 07:10] LABS: BASO # 0.01 K/mm3 (0.0-2.0); BASO % 0.1 % (0.0-3.0); EOS % 0.2 % (1.5-5.0); GRAN # 7.05 (1.4-6.5); GRAN % 80.6 % (50.0-68.0); HEMOGLOBIN 13.9 g/dL (12.0-16.0); LYMPH # 1.2 (1.2-3.4); LYMPH % 14.2 % (22.0-35.0); MEAN CORPUSCULAR HEMOGLOBIN 26.1 pg (25.0-35.0); MEAN CORPUSCULAR HGB CONC 33.4 g/dl (31.0-37.0); MEAN PLATELET VOLUME 11.3 fl (7.0-11.0); MONO # 0.4 (0.1-0.6); MONO % 4.9 % (1.0-6.0); RBC 5.33 10^6/uL (3.5-6.1); RED CELL DISTRIBUTION WIDTH 13.3 % (11.5-14.5); WHITE BLOOD COUNT 8.8 10^3/ul (4.5-11.0)
[2017-09-29 07:18] LABS: ALB/GLOB RATIO 1.1 (1.1-1.8); ALBUMIN 4.2 g/dL (3.0-4.8); ALT/SGPT 71 U/L (7-56); AMYLASE 85 U/L (35-125); AST/SGOT 50 U/L (14-36); BLOOD UREA NITROGEN 13 mg/dL (7-21); CALCIUM 10.9 mg/dL (8.4-10.5); GFR AFRICAN-AMERICAN > 60; GFR NON-AFRICAN AMERICAN > 60; LIPASE 92 U/L (23-300)
[2017-09-29 07:23] LABS: INR 0.96 (0.93-1.08); PARTIAL THROMBOPLASTIN TIME 33.1 Seconds (25.1-36.5)
[2017-09-29 07:26] LABS: TROPONIN I 0.02 ng/mL
--- NOTE | 2017-09-29 08:24 | CT ---
EXAM: CT Abdomen and Pelvis Without Intravenous Contrast CLINICAL HISTORY: 67 years old, female; Pain; Abdominal pain; Localized; Left lower quadrant (llq); Additional info: Llq pain TECHNIQUE: Axial computed tomography images of the abdomen and pelvis without intravenous contrast. All CT scans at this facility use one or more dose reduction techniques, viz.: automated exposure control; ma/kV adjustment per patient size (including targeted exams where dose is matched to indication; i.e. head); or iterative reconstruction technique. Coronal and sagittal reformatted images were created and reviewed. COMPARISON: CT - PELVIS W/O CONTRAST 2017-09-08 18:17, CT - ABD PELVIS PO CONTRAST ONLY 03/21/2017 9:34:32 AM FINDINGS: Lower thorax: There is subpleural atelectasis of the dependent portions of the lungs. There is severe atherosclerotic calcification of the coronary arteries. ABDOMEN: Liver: There is a diffuse decrease in hepatic parenchymal density, consistent with fatty infiltration.There are no focal lesions present. Gallbladder and bile ducts: Unremarkable. No calcified stones. No ductal dilation. Pancreas: Unremarkable. No ductal dilation. Spleen: Unremarkable. No splenomegaly. Adrenals: Unremarkable. No mass. Kidneys and ureters: Unremarkable. No obstructing stones. No hydronephrosis. Stomach and bowel: Unremarkable. No obstruction. No mucosal thickening. Appendix: No findings to suggest acute appendicitis. PELVIS: Bladder: Unremarkable. No stones. Reproductive: Stable enlarged fibroid uterus. ABDOMEN and PELVIS: Intraperitoneal space: No evidence of acute abnormality in the abdomen. No free air. No significant fluid collection. Bones/joints: Stable several scattered sclerotic foci are in the bony pelvis, the largest measuring 2 cm in the right iliac wing. No acute fracture. No dislocation. Soft tissues: Unremarkable. Vasculature: The aorta demonstrates moderate atherosclerotic calcification. Lymph nodes: Unremarkable. No enlarged lymph nodes. IMPRESSION: 1. There is a diffuse decrease in hepatic parenchymal density, consistent with fatty infiltration.There are no focal lesions present. 2. Stable enlarged fibroid uterus. 3. Stable several scattered sclerotic foci are in the bony pelvis, the largest measuring 2 cm in the right iliac wing. 4. No evidence of acute abnormality in the abdomen. There has been no adverse interval change since the previous study.There is no wall thickening or alli-intestinal stranding to suggest enteritis or colitis.
[2017-09-29 08:43] LABS: PH,URINE 7.5 (4.7-8.0); URINE BILIRUBIN NEGATIVE (NEGATIVE); URINE BLOOD SMALL (NEGATIVE); URINE GLUCOSE (UA) 500 mg/dL (NEGATIVE); URINE LEUKOCYTE ESTERASE NEGATIVE Leu/uL (NEGATIVE); URINE PROTEIN >=300 mg/dL (<30 mg/dL); URINE UROBILINOGEN 0.2 E.U./dL (<1 E.U./dL)
[2017-09-29 08:47] LABS: URINE APPEARANCE CLEAR (CLEAR); URINE COLOR YELLOW (YELLOW)
[2017-09-29 08:51] LABS: URINE BACTERIA MOD (NEG); URINE WBC 0 - 2 /hpf (0-6)
[2017-09-29 09:44] VITALS: BP 159/91; PULSE 70; RESP 17; O2SAT 98
--- NOTE | 2017-09-29 12:16 | CARD ---
APPROVED REPORT EKG Measurement Heart [id number] <Conclusion> Sinus bradycardia Minimal voltage criteria for LVH, may be normal variant Borderline ECG
== END 2017-09-29 09:45 | disposition home or self-care (01) ==
LOC: ED 06:01
DX: R10.9 Unspecified abdominal pain (principal); E11.9 Type 2 diabetes mellitus without complications; I10 Essential (primary) hypertension
CPT/HCPCS: 74176; 80053; 81001; 82150; 82550; 83605; 83615; 83690; 84484; 85025; 85610; 85730; 87040; 87086; 93005; 96374; 96375; 99285; J2270; J2405; J7040

== ENCOUNTER 2017-09-29 20:09 | Emergency (ER) | payer MEDICARE, MEDICAID ==
[2017-09-29 20:26] VITALS: BMI 38.4
[2017-09-29] MEDS ORDERED: Oxycodone/Acetaminophen 5/325 mg Tab PO STA (20:29)
--- NOTE | 2017-09-29 21:03 | ED PDOC ---
Arrival/HPI - General Chief Complaint: Lower Extremity Problem/Injury Time Seen by Provider: 09/29/17 20:17 Historian: Patient - History of Present Illness Narrative History of Present Illness (Text): 09/29/17 21:03 Antonette Marrero is a 67 year old female, whose past medical history includes hypertension, diabetes, heart disease with cardiac cath 08/18/17 with diffuse disease without critical lesions and sciatica/lumbar disc disease, presents to the emergency department complaining of left lower quadrant abdominal pain. Patient recently had an abdomen and pelvis CT scan which was negative. Patient states that she would not take the Tramadol prescribed because she did not think it would work. Shortly before arriving to the emergency department, patient states that she developed pain to her left lumbar area that radiated down to her groin and leg. Patient cuauhtemoc says that she began to vomit because the pain is so severe. Time/Duration: 4-6 hours Symptom Onset: Gradual Symptom Course: Unchanged Activities at Onset: Light Context: Home Past Medical History - Provider Review Nursing Documentation Reviewed: Yes - Infectious Disease Hx of Infectious Diseases: None - Cardiac Hx Cardiac Disorders: Yes Hx Heart Murmur: Yes Hx Hypertension: Yes Hx Pacemaker: No - Pulmonary Hx Respiratory Disorders: No - Neurological Hx Neurological Disorder: No Hx Paralysis: No - HEENT Hx HEENT Disorder: No - Renal Hx Renal Disorder: No - Endocrine/Metabolic Hx Diabetes Mellitus Type 2: Yes - Hematological/Oncological Hx Blood Disorders: No Hx Blood Transfusions: No Hx Blood Transfusion Reaction: No - Integumentary Hx Dermatological Disorder: No - Musculoskeletal/Rheumatological Hx Musculoskeletal Disorders: Yes Hx Arthritis: Yes Hx Unsteady Gait: No Other/Comment: yakelin knee injections - Gastrointestinal Hx Gastrointestinal Disorders: No - Genitourinary/Gynecological Hx Genitourinary Disorders: No - Psychiatric Hx Psychophysiologic Disorder: No Hx Emotional Abuse: No Hx Physical Abuse: No Hx Substance Use: No - Surgical History Hx Cardiac Catheterization: Yes - Anesthesia Hx Anesthesia: Yes Hx Anesthesia Reactions: No Hx Malignant Hyperthermia: No - Suicidal Assessment Feels Threatened In Home Enviroment: No Family/Social History - Physician Review Nursing Documentation Reviewed: Yes Family/Social History: No Known Family HX Smoking Status: Never Smoked Hx Alcohol Use: Yes (SOCIAL) Hx Substance Use: No Allergies/Home Meds Allergies/Adverse Reactions: Allergies celecoxib [From Celebrex] Allergy (Severe, Verified 09/29/17 06:08) SWELLING ONE SIDE OF FACE Home Medications: Home Meds Medication Instructions Recorded Confirmed Ranitidine HCl [Sunmark Acid 150 mg PO BID 08/14/17 09/10/17 Trim Mechanic] Simvastatin 10 mg PO QPM 08/14/17 09/10/17 Tramadol HCl [Ultram] 50 mg PO Q6 PRN 08/14/17 09/10/17 Insulin Aspart, Recombinant 20 unit SC ACB 08/15/17 09/10/17 [Novolog] Insulin Aspart, Recombinant 22 unit SC ACL 08/15/17 09/10/17 [Novolog] Insulin Aspart, Recombinant 24 unit SC ACD 08/15/17 09/10/17 [Novolog] MetFORMIN [glucOPHAGE] 1,000 mg PO BID 08/15/17 09/10/17 Review of Systems - Physician Review All systems were reviewed & negative as marked: Yes - Review of Systems Constitutional: absent: Fevers, Night Sweats Eyes: absent: Vision Changes ENT: absent: Hearing Changes Respiratory: absent: SOB Cardiovascular: absent: Chest Pain Genitourinary Female: absent: Dysuria Musculoskeletal: Back Pain Skin: absent: Rash Neurological: absent: Headache Endocrine: absent: Diaphoresis Hemo/Lymphatic: absent: Adenopathy Psychiatric: absent: Anxiety, Depression Physical Exam Vital Signs Reviewed: Yes - Systems Exam Head: Present: Atraumatic, Normocephalic Pupils: Present: PERRL Extroacular Muscles: Present: EOMI Conjunctiva: Present: Normal Mouth: Present: Moist Mucous Membranes Neck: Present: Normal Range of Motion Respiratory/Chest: Present: Clear to Auscultation, Good Air Exchange. No: Respiratory Distress, Accessory Muscle Use Cardiovascular: Present: Regular Rate and Rhythm, Normal S1, S2. No: Murmurs Abdomen: Present: Normal Bowel Sounds. No: Tenderness, Distention, Peritoneal Signs Back: Present: Other (tender to sciatic notch on left side) Upper Extremity: Present: Normal Inspection. No: Cyanosis, Edema Lower Extremity: Present: Normal Inspection. No: Edema Neurological: Present: GCS=15, CN II-XII Intact, Speech Normal Skin: Present: Warm, Dry, Normal Color. No: Rashes Psychiatric: Present: Alert, Oriented x 3, Normal Insight, Normal Concentration Medical Decision Making ED Course and Treatment: 09/29/17 21:27 Impression: 67 year old female complaining of Left lower lumbar pain today. Plan: -- Zofran and Percocet -- Reassess and disposition Prior Visits: Notes and results from previous visits were reviewed. Patient was last seen in the emergency department on 09/29/17 for left lower quadrant abdominal pain. Patient was discharged home. Progress Notes: 09/29/17 22:58 Patient is refusing to go home. Called Dr. Paz and spoke with Dr. Zamora , who states they are having issues with some of their patients who were prescribed narcotics by a doctor who no longer works in their office. Dr. Zamora recommends to refer patient to a pain management doctor. - Medication Orders Current Medication Orders: Discontinued Medications Ondansetron HCl (Zofran Odt) 8 mg PO STAT STA Stop: 09/29/17 20:30 Last Admin: 09/29/17 21:02 Dose: 8 mg Oxycodone/Acetaminophen (Percocet 5/325 Mg Tab) 2 tab PO STAT STA Stop: 09/29/17 20:30 Last Admin: 09/29/17 21:02 Dose: 2 tab MAR Pain Assessment Document 09/29/17 21:02 (Rec: 09/29/17 21:02 [id number]) Pain Reassessment Is this a pain reassessment? Yes Sleep Is patient sleeping during reassessment? No Presence of Pain Presence of Pain Yes Pain Scale Used Pain Scale Used Numeric Location Left, Right or Bilateral Left Upper or Lower Lower Pain Location Body Site Abdomen Description Description Constant - Scribe Statement The provider has reviewed the documentation as recorded by the Bryce Bojorquez Provider Scribe Attestation: All medical record entries made by the Carlosiblatonya were at my direction and personally dictated by me. I have reviewed the chart and agree that the record accurately reflects my personal performance of the history, physical exam, medical decision making, and the department course for this patient. I have also personally directed, reviewed, and agree with the discharge instructions and disposition. Disposition/Present on Arrival - Present on Arrival Any Indicators Present on Arrival: No History of DVT/PE: No History of Uncontrolled Diabetes: No Urinary Catheter: No History of Decub. Ulcer: No History Surgical Site Infection Following: None - Disposition Have Diagnosis and Disposition been Completed?: Yes Diagnosis: Sciatica associated with disorder of lumbosacral spine, Lumbar radiculopathy Disposition: HOME/ ROUTINE Disposition Time: 21:32 Patient Plan: Discharge Patient Problems: Current Active Problems Problem Status Onset Sciatica associated with disorder of lumbosacral spine Acute Lumbar radiculopathy Acute Condition: GOOD Discharge Instructions (ExitCare): Sciatica (DC), Radiculopathy (DC), Sciatica Exercises Additional Instructions: Antonette- Sorry that you are hurting so badly. I wrote for some Zofran ODT for you to help with the nausea and vomiting coming from your pain. You have Tramadol at home, do not take it with the percocet I prescribed for you. [Tramadol or Percocet, not both] Follow up with your regular doctor next week. I spoke with Dr Paz office, they ask that we refer you to pain management, please call Dr. Austin Colon's office for an appointment. Best- Dr. Chepe Rios Prescriptions: Ondansetron ODT [Zofran ODT] 8 mg PO TID #30 odt oxyCODONE/Acetaminophen [Percocet 5/325 mg Tab] 1 ea PO QID #20 tab Referrals: John Paz MD [Primary Care Provider] - Follow up with primary Austin Ellington MD [Staff Provider] - Follow up with primary Forms: [employer] (Namibian)
[2017-09-29 23:19] VITALS: RESP 18; O2SAT 98
[2017-09-30 03:59] VITALS: BP 150/78; PULSE 76; TEMP 98
== END 2017-09-30 02:30 | disposition home or self-care (01) ==
LOC: ED 20:09
DX: M54.16 Radiculopathy, lumbar region (principal); M54.30 Sciatica, unspecified side; I10 Essential (primary) hypertension; E11.9 Type 2 diabetes mellitus without complications

== ENCOUNTER 2018-08-04 10:23 | Outpatient (CLI) | payer MEDICARE, MEDICAID | END 2018-08-04 10:24 | disposition home or self-care (01) | LOC: LAB 10:23 ==

== ENCOUNTER 2018-09-29 13:14 | Outpatient (CLI) | payer MEDICARE, MEDICAID | END 2018-09-29 13:15 | disposition home or self-care (01) | LOC: OPLAB 13:14 ==

== ENCOUNTER 2018-09-30 12:41 | Outpatient (CLI) | payer MEDICARE, MEDICAID | END 2018-09-30 12:42 | disposition home or self-care (01) | LOC: OPLAB 12:41 ==

== ENCOUNTER 2018-10-16 10:30 | Outpatient (CLI) | payer MEDICARE, MEDICAID | END 2018-10-16 10:31 | disposition home or self-care (01) | LOC: LAB 10:30 ==

== ENCOUNTER 2018-11-18 08:24 | Outpatient (CLI) | payer MEDICARE, MEDICAID | END 2018-11-18 08:25 | disposition home or self-care (01) | LOC: RAD 08:24 | DX: E83.42 Hypomagnesemia (principal) ==